=== PATIENT | female | born 1940 | race Two or more races ===

== ENCOUNTER 2022-06-02 08:44 | Day surgery (SDC) | payer OTHER ==
[~2022-06-02] VITALS: Ht 152.4 cm; Wt 62.1 kg
[~2022-06-02 08:44] MED LIST: AMBIEN10 MG PO; CALTRATE 600+D1 EAC1 PO; CHILDREN'S ASPI81 MG PO; COZAAR25 MG PO; GABAPENTIN300 M2 PO; GLIPIZIDE XL10 MG PO; METFORMIN HCL500 M3 PO; ZOCOR20 MG PO
== END 2022-06-02 18:55 | disposition home or self-care (01) ==
LOC: CIR.AMB 08:44
PROVIDERS: ATTEND Colon & Rectal Surgery
DX: K60.5 Anorectal fistula (principal); Z20.822 Contact with and (suspected) exposure to COVID-19; Z88.6 Allergy status to analgesic agent; I10 Essential (primary) hypertension; Z95.5 Presence of coronary angioplasty implant and graft; E78.5 Hyperlipidemia, unspecified; I25.10 Atherosclerotic heart disease of native coronary artery without angina pectoris; J45.909 Unspecified asthma, uncomplicated; E03.9 Hypothyroidism, unspecified

== ENCOUNTER 2022-09-26 14:14 | Emergency (ER) | payer OTHER ==
[~2022-09-26] VITALS: Ht 154.9 cm; Wt 61.2 kg
== END 2022-09-27 09:22 | disposition designated cancer center or children's hospital (05) ==
LOC: ER 14:14
DX: S01.92XA Laceration with foreign body of unspecified part of head, initial encounter (principal); W19.XXXA Unspecified fall, initial encounter; Y93.9 Activity, unspecified; Y92.9 Unspecified place or not applicable; R60.0 Localized edema; Z20.822 Contact with and (suspected) exposure to COVID-19